=== PATIENT | female | born 1975 | race Caucasian/White ===

== ENCOUNTER → 2019-12-16 | Outpatient (CLI) | payer MEDICARE, MEDICAID ==
[~2019-12-16] MED LIST: ACETAMINOPHEN-1 EAC1 PO; CYCLOBENZAPRINE5 MG PO; IBUPROFEN 800800 M1 PO; OMEGA-31000 M1 PO; TRINATE TABLET1 TAB PO
== END ==
LOC: M.RAD 14:42
DX: M25.521 Pain in right elbow (principal)

== ENCOUNTER 2021-02-20 17:38 | Emergency (ER) | payer OTHER, MEDICARE, MEDICAID ==
[~2021-02-20] VITALS: Ht 160 cm; Wt 104.3 kg
[2021-02-20] MEDS ORDERED: PROAIR HFA8.5 GM INH (17:52)
[2021-02-20] MEDS ORDERED: OMEPRAZOLE 20 M20 M1 PO (17:52)
[2021-02-20] MEDS ORDERED: PROZAC20 M1 PO (17:52)
[2021-02-20] MEDS ORDERED: DESYREL150 MG PO (17:53)
[2021-02-20] MEDS ORDERED: METFORMIN HCL500 M3 PO (17:53)
[2021-02-20] MEDS ORDERED: ADVAIR 250-501 EACH INH (17:53)
[2021-02-20] MEDS ORDERED: NAPROSYN500 M1 PO (19:18)
[2021-02-20] MEDS ORDERED: VOLTAREN GEL 1100 G1 TOP (19:18)
[2021-02-20 19:28] VITALS: BP 151/54
== END 2021-02-20 19:29 | disposition home or self-care (01) ==
LOC: M.ERS 17:38
DX: S80.02XA Contusion of left knee, initial encounter (principal); E78.00 Pure hypercholesterolemia, unspecified; J45.909 Unspecified asthma, uncomplicated; E66.01 Morbid (severe) obesity due to excess calories; Z68.41 Body mass index [BMI] 40.0-44.9, adult; V89.2XXA Person injured in unspecified motor-vehicle accident, traffic, initial encounter; Y93.89 Activity, other specified; Y92.89 Other specified places as the place of occurrence of the external cause; Y99.8 Other external cause status